=== PATIENT | male | born 1990 | race Caucasian/White ===

== ENCOUNTER 2016-09-02 16:03 | Emergency (ER) | payer BC ==
[2016-09-02 17:07] VITALS: BP 149/83; PULSE 99; TEMP 98; BMI 19.6
--- NOTE | 2016-09-02 17:23 | EDPRACDOC ---
- General Information Chief Complaint: Skin Rash (not drug induced) Stated Complaint: RASH Time Seen by Provider: 09/02/16 17:15 Information Source: Patient Mode Of Arrival: Car Home Medications: Home Medications Acyclovir 800 mg PO 5XD 10 Days 08/08/16 Hydrocodone Bit/Acetaminophen [Hydrocodon-Acetaminophen 5-325] 1 tab PO Q6H PRN #14 tab 08/08/16 Prednisone [Deltasone] 20 mg PO BID #10 tablet 08/08/16 Hydrocortisone Valerate [Westcort] 45 gm TP BID #45 cream..g. 09/02/16 Ketoprofen 50 mg PO BID PRN #20 capsule 09/02/16 Allergies/Adverse Reactions: Allergies Allergy/AdvReac Type Severity Reaction Status Date / Time duloxetine HCl Allergy Severe See Verified 08/08/16 16:24 [From Cymbalta] Comments pregabalin [From Lyrica] Allergy Severe See Verified 08/08/16 16:24 Comments tramadol Allergy Unknown Verified 08/08/16 16:24 - History of Present Illness Onset: HPI: PT COMPLAINS OF ITCHING RASH TO RIGHT POSTERIOR ANKLE OFF/ON SINCE , STATES THAT NOW HAS SIMILAR AREA TO LEFT ELBOW X 2 DAYS, ALSO COMPLAINS OF PAIN IN "JOINTS" WITH RASH, PAIN IN RIGHT SHOULDER, ACHING, WORSE WITH MOVEMENT, NO KNOWN INJURY. Rash Location: Reports: Arms, Foot Quality: Reports: Pruritic, Red Known Exposure To: Denies: Chemical, Cosmetic, Lice, Measles, Medication, Poison Tammi, Scabies, Varicella, Rubella, STD, Other Relevant History of: Reports: None Irritability: None Pain Severity: Mild Associated Signs and Symptoms: Reports: Myalgias. Denies: Abdominal pain, Conjunctivitis, Facial swelling, Fever, Headache, Leg nodules, Mouth lesions, Red streaking, Sore throat ED Past Medical History - History Reviewed Yes Nurses notes reviewed and agree except as marked - Patient Medical History Neurological History: Reports: Cerebrovascular Accident (following drug OD), Seizures (SINCE 17 YOA) Cardiac History: Reports: Atrial Fibrillation, Hypertension, Congestive Heart Failure (following drug OD) GI/ History: Reports: Gastroesophageal Reflux Psychological History: Reports: Substance Use Disorder. Denies: Depression Additional Past Medical History: FIBROMYALGIA. CHRONIC PAIN - Social Medical History Smoking Status: Never smoker Social History: Reports: Substance Use Disorder ETOH: None Substance Abuse: Illicit Drugs (THC) EDM Review of Systems - Review of Systems Constitutional: negative: Chills, Fever Gastrointestinal: negative: Nausea, Vomiting Neurological: negative: Dizziness, Numbness, Weakness Musculoskeletal: Shoulder Integumentary: Itching, Rash - Physical Exam Constitutional: Alert (Awake), No apparent distress Oriented to: Time, Person, Place Last recorded Vital Signs: Last Vital Signs Temp 98.0 F 09/02/16 17:06 Pulse 99 09/02/16 17:06 Resp 18 09/02/16 17:06 BP 149/83 09/02/16 17:06 Pulse Ox 98 09/02/16 17:06 Oxygen Pulse Oxygen Saturation 98 O2 Device Oxygen Flow Rate Fraction of Inspired Oxygen ( FIO2) - HEENT Head: Normal ( normocephalic) - Respiratory/Cardiovascular Respiratory: Normal - CTA (BBS clear to auscultation without adventitious sounds ) Cardiovascular: Normal (RRR without murmur, gallop or rub) - Musculoskeletal Musculoskeletal Comment: RIGHT SHOULDER: FROM, NON-TENDER, NO SWELLING OR DEFORMITY - Integumentary Skin: Warm, Dry, Rash (ERYTHEMATOUS MACULOPAPULAR RASH TO RIGHT POSTERIOR ANKLE C/W ATOPIC DERMATITS SIMILAR AREA LEFT AC FOSSA) Lymphatics: Normal - Neurologic Memory Impaired: Normal Motor Function: Normal (Normal tone, Pulses 2+ No cyanosis or edema, FROM) Cranial Nerve: Normal (CN II-X11 intact sensation, strength 5/5) Cerebellar: Normal Mood Description: Normal Perception: Normal - Differential Diagnosis Atopic dermatitis, Contact dermatitis Decision Time to Discharge: 17:24 - Departure Disposition: Home Condition: Stable Final Diagnosis: Atopic dermatitis Qualifiers: Atopic dermatitis type: unspecified Qualified Code(s): L20.9 - Atopic dermatitis, unspecified Right shoulder pain Qualifiers: Chronicity: acute Qualified Code(s): M25.511 - Pain in right shoulder Instructions: Eczema (ED) Education/Counseling Given To: Patient Education/Counseling Given Regarding: Diagnosis, Treatment, Prognosis, Follow Up Referrals: Hernan Izaguirre PA [Primary Care Provider] - One Week Prescriptions: Hydrocortisone Valerate [Westcort] 45 gm TP BID #45 cream..g. Ketoprofen 50 mg PO BID PRN #20 capsule PRN Reason: Pain Additional Instructions: APPLY WARM COMPRESSES TO AREAS OF SORENESS 20 MINS AT A TIME 4 - 5 TIMES DAILY NEEDED FOR PAIN.
== END 2016-09-02 17:44 | disposition home or self-care (01) ==
LOC: EDMC 16:03
DX: L20.9 Atopic dermatitis, unspecified (principal); M25.511 Pain in right shoulder
CPT/HCPCS: 99283